=== PATIENT | male | born 1965 | race Caucasian/White ===

== ENCOUNTER 2017-07-14 05:13 | Day surgery (SDC) | payer OTHER ==
[~2017-07-14] VITALS: Ht 175.3 cm; Wt 113.4 kg
--- NOTE | ~2017-07-14 | O ---
[facility] [place] [address] OPERATIVE REPORT Name: JOSLYN BORJA Room #: 150-6 [facility]..#: [id number] Admission: 07/14/17 Attend Phys: Juan Medina MD Discharge: Date of : 61 Report #: [id number] THIS REPORT FOR: //name// CC: Alfonso Medina DATE OF SERVICE: 07/14/2017 PREOPERATIVE DIAGNOSES: Right knee medial meniscus tear; chondromalacia, medial compartment and patellofemoral compartment. POSTOPERATIVE DIAGNOSES: Right knee medial meniscus tear; chondromalacia, medial compartment and patellofemoral compartment. PROCEDURE: Right knee arthroscopy, partial medial meniscectomy, chondroplasty, medial femoral condyle, chondroplasty patella and trochlea. SURGEON: Juan Medina MD SHOP SERVICE TECHNICIAN: CHARISSA Calvillo INDICATIONS FOR SHOP SERVICE TECHNICIAN: During the course of operation, manipulation, retraction and limb positioning was required. This was afforded to me by my accounting manager assistant controller. ANESTHETIC: General. INDICATIONS: See hospital H and P. DESCRIPTION OF PROCEDURE: After adequate general anesthesia had been obtained, the patient's right lower extremity was prepped and draped in the usual meticulous sterile fashion. Limb was exsanguinated with gravity, tourniquet inflated to 350 torr. Superomedial portal was established by first infiltrating with 0.5% Naropin, then making a stab incision with an 11 blade. Inflow cannula was placed. Knee was insufflated with fluid. Anterolateral and anteromedial portals were established utilizing the same technique. Complete diagnostic arthroscopy was performed. Medial compartment demonstrated flap tear to medial meniscus along with chondral wear grade 3 along the medial femoral condyle extensively, also a small area of grade 4 degenerative flap, chondral surface smoothed, medial border of the tibial plateau. These areas were debrided with basket tabatha to a stable rim. Cruciate ligaments were intact. Lateral compartment demonstrated no abnormality. Patellofemoral compartment demonstrated grade 2 chondromalacia involving the median ridge and medial facet of the patella. He also had chondral fissuring along the trochlear sulcus and this required significant [facility] [address] [place] [address] OPERATIVE REPORT Name: JOSLYN BORJA Room #: 150-6 [facility].#: [id number] Admission: 07/14/17 Attend Phys: Juan Medina MD Discharge: Date of : 61 Report #: [id number] debridement. At this time, the knee was irrigated copiously with 0.5% Naropin infiltrated into the knee. The portals closed with 4-0 nylon. Sterile compressive dressing applied. Tourniquet deflated. <ELECTRONICALLY SIGNED> By: Juan Medina MD 07/14/17 1539 [id number] [id number] Juan Medina MD /nt
--- NOTE | ~2017-07-14 | EKG ---
[address] [address] ELECTROCARDIOGRAM REPORT Name: JOSLYN BORJA Room #: 150-6 [facility]#: [id number] Admission: 07/14/17 Attend Phys: Juan Medina MD Discharge: Date of : 61 Report #: [id number] THIS REPORT FOR: //name// [facility] Test Date: 2017-07-14 Test Time: 09:15:56 Pat Name: JOSLYN BORJA Department: Room: 150 6 Gender: M Back Line Cook: MARITZA : 1965 Requested By: Juan Medina Order Number: [id number] MD: Ritesh Ann Measurements Intervals [place] Rate: 65 P: 39 OR: 161 QRS: -21 QRSD: 94 T: 15 QT: 407 QTc: 424 Interpretive Statements Sinus rhythm Borderline left axis deviation Abnormal R-wave progression, early transition No previous ECG available for comparison Electronically Signed On 07-14-2017 13:16:45 CDT by Ritesh Ann [email or web address] <ELECTRONICALLY SIGNED> By: Ritesh Ann MD 07/14/17 1316 4 4 Ritesh Ann MD /DEANNA
[~2017-07-14 05:13] MED LIST: ALLOPURINOL 30300 M1 PO; CHLORTHALIDONE25 MG PO; CLONAZEPAM 1 MG1 M1 PO; PRINIVIL20 M1 PO; TYLENOL EXTRA500 MG PO; VASEPA PO; WELCHOL 625 MG625 M1 PO
[2017-07-14 09:46] LABS: CALCIUM 9.1 mg/dL (8.5-10.1); CREATININE 1.2 mg/dL (0.7-1.3); POTASSIUM 3.6 mmol/L (3.5-5.1)
[2017-07-14 10:12] VITALS: BP 176/51
[2017-07-14 13:11] VITALS: BP 176/51
== END 2017-07-14 13:25 | disposition home or self-care (01) ==
LOC: OR → TBA 05:13 → OR 10:44
PROVIDERS: Orthopaedic Surgery
DX: S83.241A Other tear of medial meniscus, current injury, right knee, initial encounter (principal); M94.261 Chondromalacia, right knee; F41.8 Other specified anxiety disorders; G47.33 Obstructive sleep apnea (adult) (pediatric); I10 Essential (primary) hypertension; E78.00 Pure hypercholesterolemia, unspecified; M10.9 Gout, unspecified; Z98.890 Other specified postprocedural states; Z79.899 Other long term (current) drug therapy; X58.XXXA Exposure to other specified factors, initial encounter; Y93.89 Activity, other specified; Y92.89 Other specified places as the place of occurrence of the external cause; Y99.8 Other external cause status
CPT/HCPCS: 50010; 50101; 50405; 51038; 54170; 56526; 62110; 62900; 70005

== ENCOUNTER → 2020-02-01 | Outpatient (CLI) | payer BC | LOC: HYPER 11:04 | DX: T81.30XD Disruption of wound, unspecified, subsequent encounter (principal); M17.11 Unilateral primary osteoarthritis, right knee; M17.12 Unilateral primary osteoarthritis, left knee; E66.3 Overweight; M25.562 Pain in left knee; I10 Essential (primary) hypertension; E78.5 Hyperlipidemia, unspecified; G47.30 Sleep apnea, unspecified; Y83.8 Other surgical procedures as the cause of abnormal reaction of the patient, or of later complication, without mention of misadventure at the time of the procedure ==

== ENCOUNTER → 2020-02-15 | Outpatient (CLI) | payer BC | LOC: HYPER 12:56 | DX: T81.31XD Disruption of external operation (surgical) wound, not elsewhere classified, subsequent encounter (principal); E66.3 Overweight; E78.5 Hyperlipidemia, unspecified; I10 Essential (primary) hypertension; G47.30 Sleep apnea, unspecified; M25.562 Pain in left knee; M17.11 Unilateral primary osteoarthritis, right knee; M17.12 Unilateral primary osteoarthritis, left knee; F41.9 Anxiety disorder, unspecified; Z68.39 Body mass index [BMI] 39.0-39.9, adult; Y83.8 Other surgical procedures as the cause of abnormal reaction of the patient, or of later complication, without mention of misadventure at the time of the procedure ==

== ENCOUNTER → 2020-02-29 | Outpatient (CLI) | payer BC | LOC: HYPER 11:46 | DX: T81.31XD Disruption of external operation (surgical) wound, not elsewhere classified, subsequent encounter (principal); M17.11 Unilateral primary osteoarthritis, right knee; M17.12 Unilateral primary osteoarthritis, left knee; E66.3 Overweight; M25.562 Pain in left knee; I10 Essential (primary) hypertension; E78.5 Hyperlipidemia, unspecified; G47.30 Sleep apnea, unspecified; Z68.39 Body mass index [BMI] 39.0-39.9, adult; Y83.8 Other surgical procedures as the cause of abnormal reaction of the patient, or of later complication, without mention of misadventure at the time of the procedure ==